=== PATIENT | female | born 1940 | race Caucasian/White ===

== ENCOUNTER 2018-06-18 13:53 | Outpatient (CLI) | payer MEDICARE, OTHER ==
--- NOTE | 2018-06-18 15:24 | Mammography Report ---
Reason: ENCOUNTER FOR SCREENING MAMMOGRAM FOR MALIGNANT NE Procedure Date: 06/18/2018 Accession Number: [id number] / [id number] Procedure: TIKI - Screening Mammo w/Vahe CPT Code: FULL RESULT: EXAM: Screening Mammo w/Vahe DATE: 06/18/2018 2:38 PM CLINICAL HISTORY: Screening encounter. History of benign breast biopsy. TECHNIQUE: Bilateral CC and MLO views were obtained. COMPARISON: 09/02/2012 through 07/18/2011. FINDINGS: The breasts demonstrate diffuse fatty replacement bilaterally. Typically benign large rodlike calcifications are identified. There also typically benign vascular calcifications. No suspicious masses, clustered microcalcifications, or regions of architectural distortion are identified. IMPRESSION: Benign findings RECOMMENDATION: Routine annual screening unless otherwise clinically indicated. BIRADS CATEGORY 2: Benign findings STANDARD QUALIFYING STATEMENTS: 1. This examination was not reviewed with the aid of Computer-Aided Detection (CAD). 2. A negative or benign imaging report should not delay biopsy if clinically suspicious findings are present. Consider surgical consultation if warrented. More than 5% of cancers are not identified by imaging. 3. Dense breasts may obscure an underlying neoplasm. 4. This examination was reviewed with the aid of 3D breast imaging (tomosynthesis).
== END 2018-06-18 13:54 | disposition home or self-care (01) ==
LOC: DI 13:53
PROVIDERS: ATTEND Family Medicine
DX: Z12.31 Encounter for screening mammogram for malignant neoplasm of breast (principal)
CPT/HCPCS: 77063; 77067

== ENCOUNTER 2018-06-18 13:54 | Outpatient (CLI) | payer MEDICARE, OTHER ==
--- NOTE | 2018-06-20 09:35 | DEXA Report ---
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 Regions measured are the AP Spine, femoral neck, and if needed forearm. COMPARISON: None. In accordance with the International Society for Clinical Densitometry (ISCD) guidelines, data from previous exams may be reanalyzed using current recommendations and techniques. This is done to allow a more accurate basis for comparison with the current study. FINDINGS: The data for the lumbar spine is as follows: BMD (g/cm/cm) T-SCORE Z-SCORE REGION L1 0.759 -3.1 -1.7 L2 0.777 -3.5 -2.1 L3 0.755 -3.7 -2.3 L4 0.906 -2.5 -1.0 TOTAL 0.816 -3.0 -1.6 NOTE: All evaluable vertebrae are used for classification The data for the hip is as follows: BMD (g/cm/cm) T-SCORE Z-SCORE REGION Neck 0.782 -1.8 0.0 TOTAL 0.717 -2.3 -0.7 NOTE: The femoral neck or total proximal femur, whichever is lowest, is used for classification. IMPRESSION: THE WHO CLASSIFICATION BASED ON THE INTERNATIONAL REFERENCE STANDARD IS OSTEOPOROSIS. THE FRACTURE RISK IS HIGH. RECOMMENDATION: Patients with diagnosis of osteoporosis or osteopenia should have regular bone mineral density assessment. For those eligible for Medicare, routine testing is allowed once every 2 years. Testing frequency can be increased for patients who have rapidly progressing disease or for those who are receiving medical therapy to restore bone mass. COMMENT: World Health Organization (WHO) definitions for osteoporosis and osteopenia: NORMAL BMD: T-score at -1.0 or higher, fracture risk is low OSTEOPENIA BMD: T-score between -1.0 and -2.5, fracture risk is increased. OSTEOPOROSIS BMD: T-score at -2.5 or lower, fracture risk is high. National Osteoporosis Foundation recommends: 1. Obtain adequate dietary calcium (at least 1200 mg per day) and vitamin D (400-800 international units per day). 2. Participate, as appropriate, in regular weightbearing and muscle-strengthening exercise. 3. Avoid tobacco use and reduce alcohol and caffeine intake. 4. For more detailed information see the website at www.NOF.org.
== END 2018-06-18 13:55 | disposition home or self-care (01) ==
LOC: DI 13:54
PROVIDERS: ATTEND Family Medicine
DX: M81.0 Age-related osteoporosis without current pathological fracture (principal)
CPT/HCPCS: 77080

== ENCOUNTER 2020-07-13 09:08 | Outpatient (CLI) | payer MEDICARE, OTHER ==
[2020-07-13] MEDS ORDERED: GADOBUTROL 10 MMOL/10 ML VIAL ONE (09:21)
[2020-07-13 11:28] LABS: CREATININE 0.4 mg/dL (0.4-1.0)
[2020-07-13] MEDS ORDERED: IOPAMIDOL-300 100 ML VIAL ONE (11:36)
[2020-07-13] MEDS ORDERED: IOPAMIDOL-300 100 ML VIAL IVP ONE (11:53)
--- NOTE | 2020-07-13 12:56 | CT Report ---
PROCEDURE: ANGIO NECK W INDICATIONS: DIZZINESS FOLLOWING NECK EXTENSION CONTRAST: IV CONTRAST: Isovue 300 ml: 80 PO CONTRAST: *NO PO CONTRAST TECHNIQUE: After the administration of intravenous contrast, 1.5 mm axial sections acquired from the aortic arch to the Holt of [place]. Coronal 3-D maximum intensity projection (MIP) and/or volume rendering ref ormats were then performed. For radiation dose reduction, the following was used: automated exposur e control, adjustment of mA and/or kV according to patient size. COMPARISON: Correlation is made with the accompanying brain MR angiogram, 07/13/2020. FINDINGS: Image quality: Excellent. Carotid system: The great vessels demonstrate a conventional anatomy as they arise from the aortic a rch. The origins of the common carotid arteries appear patent. The common carotid arteries demonstr ate normal calibers and courses. The bifurcation regions demonstrate atherosclerotic calcification a nd irregularity, without a hemodynamically significant stenosis is seen. The more distal internal car otid arteries demonstrate normal caliber. Tortuosity is seen of the distal internal carotid arteries , left worse than right. A carotid dissection is not seen. Posterior circulation: The origins of the vertebral arteries appear patent. The more superior porti ons of the vertebral arteries demonstrate normal course and caliber. They join to form a normal appe aring basilar artery. No findings of dissection can be seen. Soft tissues: Visualized neck soft tissues demonstrate no suspicious abnormalities. The thyroid gla nd is normal in size. Bones: No suspicious bony lesions. Visualized cervical spine appears normally aligned. Chronic ap pearing thickening can be seen involving the outer table of the right posterior calvarium, as on seri es 5 image 228. Degenerative changes are seen throughout, which are most prominent involving the lowe r cervical spine. IMPRESSION: No hemodynamically significant stenosis is detected. No dissection is identified. The estimate of stenosis included in the report of the imaging study was calculated using the NASCET method Reviewed by: Oskar Zepeda MD on 07/13/2020 11:55 AM RACHAEL Approved by: Oskar Zepeda MD on 07/13/2020 11:55 AM RACHAEL Station ID: [id number]
--- NOTE | 2020-07-14 15:06 | MRI Report ---
PROCEDURE: Angio Brain W/O (MRA) INDICATIONS: DIZZINESS FOLLOWING NECK EXTENSION TECHNIQUE: Noncontrast axial 3-D grri-dq-powoba MR angiogram, with 3-dimensional maximum intensity projection (M IP) reformats of the internal carotid arteries and posterior circulation then performed. COMPARISON: None. FINDINGS: Image quality: Study is limited by motion artifact and tortuosity of the vasculature Anterior circulation: Intracranial internal carotid arteries demonstrate normal size and intralumina l flow signal. The flow within the paired anterior cerebral arteries is normal and symmetric. There is flow related artifact in a tortuous right M1 MCA. The remainder of the middle cerebral arteries is normal and symmetric. The anterior communicating artery is seen. No stenoses, occlusions, or aneur ysms. Posterior circulation: Visualized portions of the vertebral arteries demonstrate normal caliber, and join to form a normal appearing basilar artery. The flow within the posterior cerebral arteries is normal and symmetric. No stenoses, occlusions, or aneurysms. IMPRESSION: The study is limited by motion and flow related artifact tortuosity. No evidence of large branch occl usion or aneurysm. The patient became claustrophobic, and the previously scheduled MR angiogram of the neck was canceled after no diagnostic images were able to be obtained. Follow-up CT angiogram of the head and neck has been ordered. Reviewed by: Kavon Salamanca MD on 07/13/2020 1:04 PM PDT Approved by: Kavon Salamanca MD on 07/13/2020 1:04 PM PDT Station ID: [id number]
== END 2020-07-13 09:09 | disposition home or self-care (01) ==
LOC: DI 09:08
PROVIDERS: ATTEND Nurse Practitioner Family
DX: L03.116 Cellulitis of left lower limb (principal); R42 Dizziness and giddiness
CPT/HCPCS: 70498; 70544; 82565; Q9967

== ENCOUNTER 2021-09-20 13:43 | Outpatient (CLI) | payer MEDICARE, OTHER ==
--- NOTE | 2021-09-20 16:09 | Ultrasound Report ---
PROCEDURE: Duplex Ext Veins Bilateral INDICATIONS: Bilateral calf pain. TECHNIQUE: Real-time imaging, as well as color and pulse Doppler interrogation, were performed of the deep veins of both legs from the inguinal ligament to the popliteal fossa. COMPARISON: None FINDINGS: The deep veins of the right and left lower extremities are normally compressible, and free of intraluminal thrombus. Color and pulse Doppler demonstrate normal phasic intravascular flow in t he deep veins of the right and left lower extremities. There is normal augmentation response to dist al compression maneuver in the deep veins of the right and left lower extremity. IMPRESSION: No evidence of deep vein thrombosis involving the right or left lower extremities. Reviewed by: Opal Lane MD, PhD on 09/20/2021 4:08 PM PDT Approved by: Opal Lane MD, PhD on 09/20/2021 4:08 PM PDT Station ID: [id number]
== END 2021-09-20 13:44 | disposition home or self-care (01) ==
LOC: DI 13:43
PROVIDERS: ATTEND Nurse Practitioner Family
DX: M79.605 Pain in left leg (principal); M79.604 Pain in right leg
CPT/HCPCS: 93970

== ENCOUNTER 2021-10-11 12:48 | Outpatient (CLI) | payer MEDICARE, OTHER ==
--- NOTE | 2021-10-11 16:02 | XRAY Report ---
PROCEDURE: Lumbar Spine 2 View INDICATIONS: LUMBAR RADICULOPATHY TECHNIQUE: 2 views of the lumbar spine were acquired. COMPARISON: None. FINDINGS: Bones: 5 duc-txq-ekcsrgk vertebrae are present. There is 3 mm retrolisthesis of L5 on S1. There is severe disc and foraminal narrowing at S1. There is overall mild to moderate scattered areas of degen erative disc space narrowing throughout the spine. Moderate bilateral foraminal narrowing is most not able at L2-3. No vertebral body compression fractures. No suspicious bony lesions. Soft tissues: Overlying bowel gas pattern is normal. No suspicious soft tissue calcifications. IMPRESSION: Degenerative changes most notable at L5-S1. Reviewed by: Jessica Crow MD on 10/11/2021 4:01 PM PDT Approved by: Jessica Crow MD on 10/11/2021 4:01 PM PDT Station ID: [id number]
== END 2021-10-11 12:49 | disposition home or self-care (01) ==
LOC: DI 12:48
PROVIDERS: ATTEND Nurse Practitioner Family
DX: M47.26 Other spondylosis with radiculopathy, lumbar region (principal)

== ENCOUNTER 2021-12-23 13:44 | Emergency (ER) | payer MEDICARE ==
[2021-12-23 13:59] VITALS: BP 147/58
--- NOTE | 2021-12-23 15:05 | XRAY Report ---
PROCEDURE: Hip w/Pelvis 2-3V RT INDICATIONS: fall/pain TECHNIQUE: AP pelvis with lateral view(s) of the right hip(s). COMPARISON: None. FINDINGS: Bones: No fractures or dislocations. Pelvic ring appears intact. No suspicious bony lesions. Oste openia. Moderate bilateral hip joint space narrowing with marginal osteophytes. Degenerative changes noted in the lower lumbar spine. Soft tissues: The visualized bowel gas pattern is normal. No suspicious soft tissue calcifications. IMPRESSION: Osteopenia and osteoarthritis without evidence of fracture Reviewed by: Kavon Salamanca MD on 12/23/2021 2:04 PM AKRACHAEL Approved by: Kavon Salamanca MD on 12/23/2021 2:04 PM AKRACHAEL Station ID: [id number]
--- NOTE | 2021-12-23 16:20 | ED Physician Documentation ---
History of Present Illness - Stated complaint Stated Complaint: FALL - Chief complaint Chief Complaint: Trauma Ext - Additonal information Additional information: 81-year-old female presents emergency department for evaluation of acute right hip pain. She reports a history of chronic low back pain as well as neuropathy. She did have a fall in the shower 2 days ago. Did not strike her head or lose consciousness. Is not anticoagulated. Since then she has had pain in the posterior hip made worse with ambulation. She has been using a cane to ambulate though she did use a family member's walker and found that it improved her gait quite a bit. Review of Systems Constitutional: reports: Reviewed and negative Ears: reports: Reviewed and negative Cardiac: reports: Reviewed and negative Respiratory: reports: Reviewed and negative Skin: denies: Rash, Lesions, Abrasion (s) Musculoskeletal: reports: Joint pain Neurologic: denies: Generalized weakness, Focal weakness PD PAST MEDICAL HISTORY - Past Medical History Cardiovascular: High cholesterol Endocrine/Autoimmune: HyPOthyroidism - Past Surgical History Past Surgical History: Yes - Present Medications Home Medications: Ambulatory Orders Medication Instructions Recorded Confirmed Benzonatate [Tessalon] 100 - 200 mg PO TID PRN #30 capsule 08/23/15 Cetirizine HCl/Pseudoephedrine 1 each PO BID PRN #30 tab.er.12h 08/23/15 [Zyrtec-D Tablet] Cholecalciferol (Vitamin D3) 5,000 unit PO DAILY 08/23/15 08/23/15 [Vitamin D3] Levothyroxine [Synthroid] 100 mcg PO QDAC 08/23/15 08/23/15 Omeprazole [PriLOSEC] 20 mg PO DAILY 08/23/15 08/23/15 oxyCODONE [Roxicodone] 5 mg PO TID PRN #10 tablet 12/23/21 - Allergies Allergies/Adverse Reactions: Allergies Allergy/AdvReac Type Severity Reaction Status Date / Time cephalexin Allergy Rash Verified 12/23/21 13:59 Sulfa (Sulfonamide Allergy unknown Verified 12/23/21 13:59 Antibiotics) - Social History Does the pt smoke?: No Smoking Status: Never smoker Does the pt drink ETOH?: No Does the pt have substance abuse?: No - POLST Patient has POLST: No PD ED PE EXPANDED - General General: Alert, No acute distress - Cardiac Cardiac: Regular Rate, Radial strong equal, Pedal strong equal, Cap refill < 2 sec - Respiratory Respiratory: Clear to ausultation eugenio. No: Distress, Labored - Extremities Extremities: Right hip (Pain mostly with palpation of the right posterior hip and gluteal area. No abrasion or swelling. No midline low back pain elicited. Normal active and passive range of motion though tender in the posterior hip. No tenderness elicited with palpation of the proximal femur. No malrotation), Pedal edema bilateral, Pedal Pulses Present Results - Vitals Vitals: Vital Signs - 24 hr 12/23/21 13:56 Temperature 36.4 C L Heart Rate 73 Respiratory 16 Rate Blood Pressure 147/58 H O2 Saturation 94 Oxygen O2 Source Room air - Labs Labs: Laboratory Tests 12/23/21 12/23/21 16:25 16:25 WBC 10.3 RBC 3.13 L Hgb 11.1 L Hct 33.8 L MCV 108.0 H MCH 35.5 H MCHC 32.8 Plt Count 349 MPV 10.2 Neut # (Auto) 7.9 H Lymph # (Auto) 1.0 L [place] # (Auto) 1.1 H Eos # (Auto) 0.1 Baso # (Auto) 0.1 Absolute Nucleated RBC 0.00 Nucleated RBC % 0.0 Manual Slide Review Indicated Platelet Estimate NORMAL (130-450,000) Platelet Morphology NORMAL APPEARANCE RBC Morph Micro Appear 2+ MACROCYTOSIS Sodium 140 Potassium 3.2 L Chloride 104 Carbon Dioxide 27 Anion Gap 9.0 BUN 18 Creatinine 0.5 Estimated GFR (MDRD) 118 Glucose 120 H Calcium 9.0 - Rads (name of study) CT hip/pelvis Radiology: Final report received (No evidence of pelvis or hip fracture. Bilateral inguinal hernias. No bowel obstruction. Sigmoid diverticulosis without evidence of diverticulitis.) PD MEDICAL DECISION MAKING - ED course Complexity details: reviewed results, re-evaluated patient, considered chris del valle, d/w patient ED course: 81-year-old female presents emergency department for evaluation of right posterior hip pain. She had a ground-level fall in the shower 2 days ago. She has been ambulatory with a cane. Most of her pain was elicited within the gluteal muscle body. No tenderness was elicited with palpation of the proximal femur Or with internal or external rotation. Initial x-ray imaging was negative but given advanced age we did proceed with a CT of the hip and pelvis that did not show any findings of acute fracture. Patient was able to ambulate well in the emergency department using a walker. She did receive a dose of oxycodone which she reported was helpful for her pain. [address] we discussed that the CT imaging is not 100% definitive to rule out an occult fracture and that MRI imaging is typically the image of choice in unclear cases but the patient does not feel that this is necessary today as her pain is improved and she is ambulating well with a walker. She is discharged home to follow-up with a primary care provider. Limited prescription for oxycodone is sent to the [facility] in [place]. I am prescribing a short course of short-acting opioid pain medication for this patient. I have reviewed the patients PCP and no concerning findings were noted. I have discussed that the opioids are for short term therapy only, and will not be refilled from the ED. Departure - Departure Disposition: 01 Home, Self Care Clinical Impression: Fall from ground level Contusion of right hip Qualifiers: Encounter type: initial encounter Qualified Code(s): S70.01XA - Contusion of right hip, initial encounter Condition: Stable Record reviewed to determine appropriate education?: Yes Instructions: ED Contusion Lower Extr Ch Prescriptions: oxyCODONE [Roxicodone] 5 mg PO TID PRN #10 tablet PRN Reason: Pain Comments: Nancy was seen today in the emergency department after she fell 2 days ago at home and has had pain behind her right hip. The x-ray did not show a broken bone. However we did also do a CT of the hip and pelvis that did not show any findings of a fracture. I do suspect highly that she has a soft tissue or muscle contusion that I think will improve over the next 7 to 10 days. In general I would like her to use 600 mg of ibuprofen with food 2-3 times a day. For more severe pain a very limited amount of oxycodone has been sent to the pharmacy. Nancy should always ambulate with a walker. This is the safest way for her to get around and to ensure she does not have any more falls. Oxycodone can cause significant constipation. She should take MiraLAX each day while on this medication to prevent constipation. Discuss this ED visit with your primary care provider. If at any point you find that your symptoms are not improving, you have worsening pain any falls or fevers then please return immediately to the ER for second evaluation. I am prescribing a short course of narcotic pain medication for you. These are potentially dangerous and addictive medications that should be used carefully. These medications may constipate you. Take an kdui-bnr-dhohppv stool softener (docusate) twice daily with plenty of water while taking these medications. If you go 24 hours without a bowel movement, take ahtq-otl-tofodor miralax, per package instructions. Do not drink or drive while taking these medications. If you received narcotic or sedating medications while in the emergency department, do not drive for 24 hours. Store this medication in a safe, secure place and out of reach of children. It is a violation of federal law to give or sell this medication to another person or to use in a manner other than prescribed. The ED will not refill narcotic prescriptions, including prescriptions lost or stolen. To dispose of unwanted medications: 1. [facility] at [address] in [place] has a medication drop box. They accept prescription medications (in pill form) Sunday through Sunday 9:00 a.m. to 5:00 p.m. 2. The [facility] [employer] accepts prescription medications (in pill form only) for disposal year round. Call for more information. 3. Contact the [facility] for the next [facility] sponsored prescription drug collection event. , [phone], or [phone]; Note that many narcotic pain relievers also contain Tylenol/acetaminophen. Please ensure that your total dose of acetaminophen from all sources does not exceed 3 g (3000 mg) per day.
[2021-12-23 16:31] LABS: BASOPHILS # (AUTO) 0.1 10^3/uL (0.0-0.1); BASOPHILS % (AUTO) 0.6 %; EOSINOPHILS # (AUTO) 0.1 10^3/uL (0.0-0.7); EOSINOPHILS % (AUTO) 1.2 %; HCT - HEMATOCRIT 33.8 % (37.0-47.0); HGB - HEMOGLOBIN 11.1 g/dL (12.0-16.0); LYMPHOCYTES % (AUTO) 9.3 %; MEAN CORPUSCULAR HEMOGLOBIN 35.5 pg (27.0-31.0); MEAN CORPUSCULAR HGB CONC 32.8 g/dL (32.0-36.0); MEAN PLATELET VOLUME 10.2 fL (7.9-10.8); MONOCYTES # (AUTO) 1.1 10^3/uL (0.0-1.0); NEUTROPHILS # (AUTO) 7.9 10^3/uL (1.5-6.6); NEUTROPHILS % (AUTO) 77.3 %; PLT - PLATELET COUNT 349 10^3/uL (130-450); RED BLOOD COUNT 3.13 10^6/uL (4.20-5.40); WHITE BLOOD COUNT 10.3 x10^3/uL (4.8-10.8)
[2021-12-23] MEDS: oxyCODONE 5 MG TABLET PO STA (16:33)
[2021-12-23 16:39] LABS: CREATININE 0.5 mg/dL (0.4-1.0); POTASSIUM 3.2 mmol/L (3.5-5.0)
[2021-12-23] MEDS: POTASSIUM CHLORIDE 20 MEQ TABLET PO STA (17:37)
--- NOTE | 2021-12-23 17:50 | CT Report ---
PROCEDURE: PELVIS WO INDICATIONS: right hip pain; r/p fx TECHNIQUE: Noncontrast 3 mm axial sections acquired through the bony pelvis, with coronal and sagittal reformatt ing. For radiation dose reduction, the following was used: automated exposure control, adjustment of mA and/or kV according to patient size. COMPARISON: None. FINDINGS: Image quality: Excellent. Generalized decreased osseous mineralization present. There is bilateral acetabular moderate joint sp nathan narrowing with marginal osteophytes present. No evidence of proximal femoral or pelvic fracture Bilateral inguinal hernias noted. There is a left inguinal hernia without obstruction. Fluid in the r ight inguinal hernia noted.. Calcified uterine fibroids present. Multiple diverticula arise from the sigmoid colon without evidence of diverticulitis. Degenerative changes noted in the lower lumbar spin e IMPRESSION: No evidence of pelvis or hip fracture. Bilateral inguinal hernias. No bowel obstruction. Sigmoid diverticulosis without evidence of diverticulitis Reviewed by: Kavon Salamanca MD on 12/23/2021 4:49 PM RACHAEL Approved by: Kavon Salamanca MD on 12/23/2021 4:49 PM AKRACHAEL Station ID: [id number]
[2021-12-23 18:00] LABS: SLIDE REVIEW? Indicated
[2021-12-23 18:01] LABS: PLATELET ESTIMATE, MANUAL NORMAL (130-450,000) (NORMAL); PLATELET MORPHOLOGY NORMAL APPEARANCE (NORMAL)
== END 2021-12-23 18:21 | disposition home or self-care (01) ==
LOC: ED 13:44
DX: S70.01XA Contusion of right hip, initial encounter (principal); W19.XXXA Unspecified fall, initial encounter; Y93.F1 Activity, caregiving, bathing
CPT/HCPCS: 36415; 72192; 73502; 80048; 85025; 99283; 99284; A9270

== ENCOUNTER 2021-12-31 19:58 | Outpatient (CLI) | payer MEDICARE | END 2021-12-31 19:59 | disposition critical access hospital (66) | LOC: EMS 19:58 | DX: R55 Syncope and collapse (principal); R41.0 Disorientation, unspecified | CPT/HCPCS: A0425; A0429 ==

== ENCOUNTER 2021-12-31 20:30 | Emergency (ER) | payer MEDICARE ==
[2021-12-31] MEDS ORDERED: SODIUM CHLORIDE 0.9% 1,000 ML IV STA ×2 (21:01→22:16)
--- NOTE | 2021-12-31 21:05 | ED Physician Documentation ---
PD HPI SYNCOPE - Stated complaint Stated Complaint: SYNCOPE - Chief complaint Chief Complaint: Neuro - History obtained from History obtained from: Patient, EMS - History of Present Illness Witnessed: Witnessed Timing - onset: Today Duration: Seconds Preceding symptoms: Light headed, Generalized weakness Associated symptoms: No: Seizure, Incontinant of urine, Headache, Vision changes, Chest pain, Palpitations, Diaphoresis, Dyspnea, Nausea / vomiting, Abdominal pain Contributing factors: Recent med change, Decreased PO intake, Just stood up Injury occurred: None Similar symptoms before: Has not had sx before Recently seen: Emergency Dept - Additional information Additional information: 81-year-old Nancy Salamanca has a history of hypothyroidism and chronic back pain. She is recently been seen in the emergency department after a fall in the shower 10 days ago and she has had reduced mobility secondary to pain in her hip. She has now started to use a walker. She has been evaluated for this and placed on some pain medication. The pain medication helped and she has run out. This evening she was at a birthday constitution party in her home when she began to feel that she needed to go to bed and she got up from her chair and collapsed into her daughter's arms. Patient has reduced mobility and indicates that she is not getting up to go to the bathroom as often as normal and she is not getting up to go get water as normal. She states otherwise she thinks she is eating okay she is taking her medications and she does not otherwise feel ill Review of Systems Constitutional: denies: Fever Eyes: denies: Decreased vision Ears: denies: Ear pain Nose: denies: Rhinorrhea / runny nose, Congestion Throat: denies: Sore throat Cardiac: denies: Chest pain / pressure, Palpitations Respiratory: denies: Dyspnea, Cough GI: denies: Abdominal Pain, Nausea, Vomiting, Constipation, Diarrhea : denies: Dysuria, Frequency Skin: denies: Rash Musculoskeletal: reports: Back pain, Extremity pain, Joint pain, Pain with weight bearing. denies: Neck pain Neurologic: reports: Syncope, Altered mental status (resolved), LOC. denies: Generalized weakness, Focal weakness, Numbness, Seizure, Headache, Head injury PD PAST MEDICAL HISTORY - Past Medical History Cardiovascular: High cholesterol Endocrine/Autoimmune: HyPOthyroidism - Past Surgical History Past Surgical History: Yes - Present Medications Home Medications: Ambulatory Orders Medication Instructions Recorded Confirmed Benzonatate [Tessalon] 100 - 200 mg PO TID PRN #30 capsule 08/23/15 Cetirizine HCl/Pseudoephedrine 1 each PO BID PRN #30 tab.er.12h 08/23/15 [Zyrtec-D Tablet] Cholecalciferol (Vitamin D3) 5,000 unit PO DAILY 08/23/15 08/23/15 [Vitamin D3] Levothyroxine [Synthroid] 100 mcg PO QDAC 08/23/15 08/23/15 Omeprazole [PriLOSEC] 20 mg PO DAILY 08/23/15 08/23/15 oxyCODONE [Roxicodone] 5 mg PO TID PRN #10 tablet 12/23/21 Ciprofloxacin HCl [Cipro] 500 mg PO BID #14 tablet 01/01/22 Meloxicam [Mobic] 7.5 mg PO BID PRN #20 tablet 01/01/22 Oxycodone HCl/Acetaminophen 1 - 2 each PO Q6H PRN #14 tablet 01/01/22 [Percocet 5-325 mg Tablet] - Allergies Allergies/Adverse Reactions: Allergies Allergy/AdvReac Type Severity Reaction Status Date / Time cephalexin Allergy Rash Verified 12/31/21 20:46 Sulfa (Sulfonamide Allergy unknown Verified 12/31/21 20:46 Antibiotics) - Social History Does the pt smoke?: No Smoking Status: Never smoker Does the pt drink ETOH?: No Does the pt have substance abuse?: No - POLST Patient has POLST: No PD ED PE NORMAL - Vitals Vital signs reviewed: Yes (hypertensive mild ) - General General: Alert and oriented X 3, No acute distress, Well developed/nourished - HEENT HEENT: Atraumatic, PERRL, EOMI - Neck Neck: Supple, no meningeal sign, No bony TTP - Cardiac Cardiac: RRR, Other (2/6 holosysolic murmer ) - Respiratory Respiratory: No respiratory distress, Clear bilaterally - Abdomen Abdomen: Normal bowel sounds, Soft, Non tender, Non distended, No organomegaly - Back Back: No CVA TTP, No spinal TTP - Derm Derm: Normal color, Warm and dry, No rash - Extremities Extremities: No deformity, No edema - Neuro Neuro: Alert and oriented X 3, internal salesperson 2-12 intact, No motor deficit, No sensory deficit, Normal speech Eye Opening: To Voice Motor: Obeys Commands Verbal: Oriented GCS Score: 14 - Psych Psych: Normal mood, Normal affect Results - Vitals Vitals: Vital Signs - 24 hr 12/31/21 12/31/21 01/01/22 20:39 22:43 00:38 Temperature 36.2 C L Heart Rate 64 68 72 Respiratory 19 16 16 Rate Blood Pressure 167/68 H 143/97 H 144/93 H O2 Saturation 99 97 98 Oxygen O2 Source Room air - EKG (time done) 2030 Rate: Rate (enter#) (62) Rhythm: NSR, LAE Intervals: RBBB Compare to prior EKG: Old EKG unavailable Computer interpretation: Agree with computer - Labs Labs: Laboratory Tests 12/31/21 12/31/21 12/31/21 21:15 21:15 21:15 WBC 12.9 H RBC 3.37 L Hgb 11.6 L Hct 35.3 L MCV 104.7 H MCH 34.4 H MCHC 32.9 RDW 24.5 H Plt Count 607 H MPV 9.7 Neut # (Auto) 11.0 H Lymph # (Auto) 1.0 L Coos # (Auto) 0.7 Eos # (Auto) 0.1 Baso # (Auto) 0.1 Absolute Nucleated RBC 0.00 Nucleated RBC % 0.0 Manual Slide Review Indicated Platelet Estimate INCREASED (>450,000) Platelet Morphology NORMAL APPEARANCE RBC Morph Micro Appear 3+ ANISOCYTOSIS Sodium 141 Potassium 3.5 Chloride 104 Carbon Dioxide 27 Anion Gap 10.0 BUN 17 Creatinine 0.5 Estimated GFR (MDRD) 118 Glucose 127 H Lactic Acid 0.7 Calcium 9.3 Magnesium 2.3 Total Bilirubin 0.4 AST 17 ALT 16 Alkaline Phosphatase 121 Total Protein 6.7 Albumin 3.6 Globulin 3.1 Albumin/Globulin Ratio 1.2 Lipase 23 Urine Color Urine Clarity Urine pH Ur Specific [place] Urine Protein Urine Glucose (UA) Urine Ketones Urine Occult Blood Urine Nitrite Urine Bilirubin Urine Urobilinogen Ur Leukocyte Esterase Urine RBC Urine WBC Ur Squamous Epith Cells Urine Bacteria Ur Microscopic Review Urine Culture Comments 12/31/21 22:39 WBC RBC Hgb Hct MCV MCH MCHC RDW Plt Count MPV Neut # (Auto) Lymph # (Auto) Coos # (Auto) Eos # (Auto) Baso # (Auto) Absolute Nucleated RBC Nucleated RBC % Manual Slide Review Platelet Estimate Platelet Morphology RBC Morph Micro Appear Sodium Potassium Chloride Carbon Dioxide Anion Gap BUN Creatinine Estimated GFR (MDRD) Glucose Lactic Acid Calcium Magnesium Total Bilirubin AST ALT Alkaline Phosphatase Total Protein Albumin Globulin Albumin/Globulin Ratio Lipase Urine Color YELLOW Urine Clarity CLOUDY Urine pH 6.0 Ur Specific [place] 1.015 Urine Protein NEGATIVE Urine Glucose (UA) NEGATIVE Urine Ketones NEGATIVE Urine Occult Blood NEGATIVE Urine Nitrite POSITIVE H Urine Bilirubin NEGATIVE Urine Urobilinogen 0.2 (NORMAL) Ur Leukocyte Esterase TRACE H Urine RBC 0-5 Urine WBC 6-10 H Ur Squamous Epith Cells NONE SEEN Urine Bacteria Many H Ur Microscopic Review INDICATED Urine Culture Comments INDICATED Procedures - IVC sono (time) 2100 Bedside IVC sono: IVC measures (cm) (0.81), IVC collapsed c insp (cm) (complete), Dehydration (est 2 liter deficit) PD MEDICAL DECISION MAKING - ED course Complexity details: reviewed old records, reviewed results, re-evaluated patient, considered differential, d/w patient ED course: 81-year-old female with reduced mobility secondary to a fall in the shower and a contusion to her hip has had a syncopal episode this evening. On physical examination with the use of bedside ultrasound her inferior vena cava is interrogated and found to have a 8.1 mm vessel collapsing completely consistent with a 2 L volume deficit and she is administered intravenous saline. She does not produce urine after the first liter and is able to give a cloudy specimen during the second liter and she has marked improvement. This patient had been having symptoms of urinary frequency and urgency and had voluntarily decreased her fluid intake to avoid having the painful experience of getting in and out of bed to go to the bathroom. I suspect this is the reason for her significant dehydration and she does have evidence of infection on examination of the urine. She is administered a gram of Rocephin intravenously and we will place her on some antibiotic as an outpatient. She was administered IV toradal with improvement in her pain. She is much more animated on discharge and able to get in and out of bed by herself. Departure - Departure Disposition: 01 Home, Self Care Clinical Impression: Syncope and collapse, Dehydration UTI (urinary tract infection) Qualifiers: Urinary tract infection type: acute cystitis Hematuria presence: without hematuria Qualified Code(s): N30.00 - Acute cystitis without hematuria Condition: Stable Instructions: ED Dehydration, ED UTI Cystitis Female Follow-Up: Eloisa Chua ARNP [Primary Care Provider] - Prescriptions: Ciprofloxacin HCl [Cipro] 500 mg PO BID #14 tablet Meloxicam [Mobic] 7.5 mg PO BID PRN #20 tablet PRN Reason: Pain Oxycodone HCl/Acetaminophen [Percocet 5-325 mg Tablet] 1 - 2 each PO Q6H PRN #14 tablet PRN Reason: pain Comments: Nancy, today it looks like you had a fainting episode relating to significant dehydration. In addition you have a urinary tract infection and I have E scribed some antibiotic to the [facility] in [place]. I have E scribed some medication for pain as well. Try the Mobic as it may be helpful long-term. Be certain to stay hydrated. Discharge Date/Time: 01/01/22 00:45
[2021-12-31 21:27] LABS: BASOPHILS # (AUTO) 0.1 10^3/uL (0.0-0.1); BASOPHILS % (AUTO) 0.5 %; EOSINOPHILS # (AUTO) 0.1 10^3/uL (0.0-0.7); EOSINOPHILS % (AUTO) 0.7 %; HCT - HEMATOCRIT 35.3 % (37.0-47.0); HGB - HEMOGLOBIN 11.6 g/dL (12.0-16.0); LYMPHOCYTES % (AUTO) 7.4 %; MEAN CORPUSCULAR HEMOGLOBIN 34.4 pg (27.0-31.0); MEAN CORPUSCULAR HGB CONC 32.9 g/dL (32.0-36.0); MEAN CORPUSCULAR VOLUME 104.7 fL (81.0-99.0); MEAN PLATELET VOLUME 9.7 fL (7.9-10.8); MONOCYTES # (AUTO) 0.7 10^3/uL (0.0-1.0); MONOCYTES % (AUTO) 5.7 %; NEUTROPHILS % (AUTO) 85.2 %; PLT - PLATELET COUNT 607 10^3/uL (130-450); RED BLOOD COUNT 3.37 10^6/uL (4.20-5.40); RED CELL DISTRIBUTION WIDTH 24.5 % (12.0-15.0); WHITE BLOOD COUNT 12.9 x10^3/uL (4.8-10.8)
[2021-12-31 21:28] LABS: SLIDE REVIEW? Indicated
[2021-12-31 21:36] LABS: ALBUMIN 3.6 g/dL (3.2-5.5); ALBUMIN/GLOBULIN RATIO 1.2 (1.0-2.2); BILIRUBIN,TOTAL 0.4 mg/dL (0.2-1.0); CALCIUM 9.3 mg/dL (8.5-10.3); CREATININE 0.5 mg/dL (0.4-1.0); MAGNESIUM 2.3 mg/dL (1.7-2.8); POTASSIUM 3.5 mmol/L (3.5-5.0); TOTAL PROTEIN 6.7 g/dL (6.7-8.2)
[2021-12-31 21:53] LABS: PLATELET ESTIMATE, MANUAL INCREASED (>450,000) (NORMAL); PLATELET MORPHOLOGY NORMAL APPEARANCE (NORMAL); RBC MORPHOLOGY (MULTIPLE) 3+ ANISOCYTOSIS (NORMAL)
[2021-12-31 22:51] LABS: BILIRUBIN,URINE NEGATIVE (NEGATIVE); GLUCOSE, URINE (UA) NEGATIVE (NEGATIVE); KETONES,URINE (UA) NEGATIVE (NEGATIVE); LEUKOCYTE ESTERASE, URINE TRACE (NEGATIVE); NITRITE,URINE POSITIVE (NEGATIVE); OCCULT BLOOD,URINE NEGATIVE (NEGATIVE); PROTEIN,URINE NEGATIVE (NEGATIVE); UROBILINOGEN,URINE 0.2 (NORMAL) E.U./dL (NORMAL)
[2021-12-31 22:52] LABS: CLARITY,URINE CLOUDY (CLEAR)
[2021-12-31 22:59] LABS: RBC,URINE 0-5 /HPF (0-5)
[2021-12-31 23:00] LABS: BACTERIA,URINE Many /HPF (None Seen); SQUAMOUS EPITHELIAL CELL,UR NONE SEEN (<= Few)
[2021-12-31] MEDS ORDERED: cefTRIAXone 1 GM in SODIUM CHLORIDE 0.9% MINIBAG 100 ML IV STA (23:15)
[2021-12-31] MEDS ORDERED: cefTRIAXone 1 GM VIAL ONE (23:50)
[2022-01-01 00:38] VITALS: BP 144/93
== END 2022-01-01 00:45 | disposition home or self-care (01) ==
LOC: EDUNIT# → ED 20:30
DX: N30.00 Acute cystitis without hematuria (principal); E86.0 Dehydration; R55 Syncope and collapse; G89.29 Other chronic pain; E03.9 Hypothyroidism, unspecified; M54.9 Dorsalgia, unspecified; M25.559 Pain in unspecified hip
CPT/HCPCS: 36415; 80053; 81001; 81003; 83605; 83690; 83735; 85025; 87086; 87181; 93005; 96361; 96365; 99284

== ENCOUNTER 2023-02-28 17:47 | Emergency (ER) | payer MEDICARE ==
[2023-02-28 18:09] VITALS: BP 144/67; O2SAT 96
--- NOTE | 2023-02-28 18:52 | XRAY Report ---
PROCEDURE: Chest 2 View X-Ray INDICATIONS: Cough TECHNIQUE: 2 views of the chest were acquired. COMPARISON: Radiograph 08/23/2015. FINDINGS: Surgical changes and devices: None. Lungs and pleura: Small airspace opacity in the lingula. Mild eventration of the right hemidiaphragm . Mediastinum: Mediastinal contours appear normal. Heart size is normal. Bones and chest wall: No suspicious bony lesions. Overlying soft tissues appear unremarkable. Mid thoracic compression deformities, new since 2016. IMPRESSION: Small airspace opacity in the lingula, suggestive of mild infection. Recommend repeat radiograph in o ne to 2 months to ensure resolution. Mid thoracic compression deformities, new since 2016 but likely remote. Reviewed by: Edwin Em on 02/28/2023 5:[address] [facility] Approved by: Edwin Em on 02/28/2023 5:[address] [facility] Station ID: [id number]
[2023-02-28 19:00] LABS: B. PARAPERTUSSIS- RESP PCR PAN NOT DETECTED; B. PERTUSSIS- RESP PCR PANEL NOT DETECTED; C. PNEUMONIAE- RESP PCR PANEL NOT DETECTED; CORONAVIRUS 229E-RESP PCR NOT DETECTED; CORONAVIRUS HKU1-RESP PCR NOT DETECTED; CORONAVIRUS NL63-RESP PCR NOT DETECTED; CORONAVIRUS OC43-RESP PCR NOT DETECTED; HUMAN METAPNEUMOVIRUS NOT DETECTED; INFLUENZA A- RESP PCR PANEL NOT DETECTED; INFLUENZA B - RESP PCR PANEL NOT DETECTED; M. PNEUMONIAE- RESP PCR PANEL NOT DETECTED; PARAINFLUENZA VIRUS 1 NOT DETECTED; PARAINFLUENZA VIRUS 2 NOT DETECTED; PARAINFLUENZA VIRUS 3 NOT DETECTED; PARAINFLUENZA VIRUS 4 NOT DETECTED; RHINOVIRUS/ENTEROVIRUS NOT DETECTED; RSV- RESP PCR PANEL NOT DETECTED; SARS-CoV-2 -RESP PCR PANEL NOT DETECTED
[2023-02-28] MEDS ORDERED: ALBUTEROL 1 PUFF INH STA (19:45)
[2023-02-28] MEDS ORDERED: AMOX/CLAV 875 MG/125 MG TABLET PO STA (19:51)
[2023-02-28] MEDS ORDERED: AZITHROMYCIN 250 MG TABLET PO STA (19:51)
--- NOTE | 2023-02-28 19:54 | ED Physician Documentation ---
History of Present Illness - Stated complaint Stated Complaint: SOA/COUGH - Chief complaint Chief Complaint: Resp - History obtained from History obtained from: Patient - History of Present Illness Pain level max: 0 Pain level now: 0 - Additonal information Additional information: Patient is an 82-year-old female who presents to the emergency department with a cough for the past week. She had chills tonight and subjective fever. Had a coughing fit at home and had a hard time catching her breath. She states she coughed up a large amount of mucus. She feels normal now. Has not used inhalers in the past. Does not smoke. No history of COPD or emphysema. Review of Systems Constitutional: denies: Fever, Chills Respiratory: reports: Cough GI: denies: Vomiting, Diarrhea Skin: denies: Rash Musculoskeletal: denies: Neck pain, Back pain Neurologic: denies: Headache PD PAST MEDICAL HISTORY - Past Medical History Cardiovascular: High cholesterol Endocrine/Autoimmune: HyPOthyroidism - Past Surgical History Past Surgical History: Yes - Present Medications Home Medications: Ambulatory Orders Medication Instructions Recorded Confirmed Benzonatate [Tessalon] 100 - 200 mg PO TID PRN #30 capsule 08/23/15 Cetirizine HCl/Pseudoephedrine 1 each PO BID PRN #30 tab.er.12h 08/23/15 [Zyrtec-D Tablet] Cholecalciferol (Vitamin D3) 5,000 unit PO DAILY 08/23/15 08/23/15 [Vitamin D3] Levothyroxine [Synthroid] 100 mcg PO QDAC 08/23/15 08/23/15 Omeprazole [PriLOSEC] 20 mg PO DAILY 08/23/15 08/23/15 oxyCODONE [Roxicodone] 5 mg PO TID PRN #10 tablet 12/23/21 Ciprofloxacin HCl [Cipro] 500 mg PO BID #14 tablet 01/01/22 Meloxicam [Mobic] 7.5 mg PO BID PRN #20 tablet 01/01/22 Oxycodone HCl/Acetaminophen 1 - 2 each PO Q6H PRN #14 tablet 01/01/22 [Percocet 5-325 mg Tablet] Albuterol Sulf [Ventolin Hfa 1 - 2 puffs INH Q4HR PRN #1 each 02/28/23 Inhaler] Amox/Clav 875/125 [Augmentin] 1 tab PO Q12H #19 tablet 02/28/23 Azithromycin [Zithromax] 250 mg PO DAILY #4 tablet 02/28/23 - Allergies Allergies/Adverse Reactions: Allergies Allergy/AdvReac Type Severity Reaction Status Date / Time cephalexin Allergy Rash Verified 12/31/21 20:46 Sulfa (Sulfonamide Allergy unknown Verified 12/31/21 20:46 Antibiotics) - Social History Does the pt smoke?: No Smoking Status: Never smoker Does the pt drink ETOH?: No Does the pt have substance abuse?: No - POLST Patient has POLST: No PD ED PE NORMAL - Vitals Vital signs reviewed: Yes - General General: Alert and oriented X 3, No acute distress - HEENT HEENT: PERRL, Ears normal, Moist mucous membranes, Pharynx benign - Neck Neck: Supple, no meningeal sign - Cardiac Cardiac: RRR - Respiratory Respiratory: No respiratory distress, Other (Mildly diminished breath sounds bilaterally. No wheezing. No stridor.) - Abdomen Abdomen: Soft, Non tender, Non distended - Derm Derm: Warm and dry - Neuro Neuro: Alert and oriented X 3 - Psych Psych: Normal mood, Normal affect Results - Vitals Vitals: Vital Signs - 24 hr 02/28/23 02/28/23 18:02 20:05 Temperature 36.8 C Heart Rate 69 72 Respiratory 18 18 Rate Blood Pressure 144/67 H O2 Saturation 96 Oxygen O2 Source Room air - Labs Labs: Laboratory Tests 02/28/23 18:08 Nasal Adenovirus (PCR) NOT DETECTED Nasal B. parapertussis DNA (PCR) NOT DETECTED Nasal Coronavir 229E PCR NOT DETECTED Nasal Coronavir HKU1 PCR NOT DETECTED Nasal Coronavir NL63 PCR NOT DETECTED Nasal Coronavir OC43 PCR NOT DETECTED Nasal Enterovir/Rhinovir PCR NOT DETECTED Nasal Influenza B PCR NOT DETECTED Nasal Influenza A PCR NOT DETECTED Nasal Parainfluen 1 PCR NOT DETECTED Nasal Parainfluen 2 PCR NOT DETECTED Nasal Parainfluen 3 PCR NOT DETECTED Nasal Parainfluen 4 PCR NOT DETECTED Nasal RSV (PCR) NOT DETECTED Nasal B.pertussis DNA PCR NOT DETECTED Nasal C.pneumoniae (PCR) NOT DETECTED Kenji Human Metapneumo PCR NOT DETECTED Nasal M.pneumoniae (PCR) NOT DETECTED Nasal SARS-CoV-2 (PCR) NOT DETECTED - Rads (name of study) cxr Relevant Findings:: Final report received, See rad report PD Medical Decision Making - ED course Complexity details: reviewed results, re-evaluated patient, considered differential, d/w patient, d/w family ED course: Patient is very well-appearing, nontoxic. Afebrile. No hypoxia. No respiratory distress. Did have mildly diminished breath sounds and felt better after albuterol, therefore she will be placed on albuterol for home. Appears to have a possible early pneumonia on chest x-ray, we will place on antibiotics for this. Will place her on cough medication as well. Patient counseled regarding signs and symptoms for which I believe and urgent re-evaluation would be necessary. Patient with good understanding of and agreement to plan and is comfortable going home at this time This document was made in part using voice recognition software. While efforts are made to proofread this document, sound alike and grammatical errors may occur. Departure - Departure Disposition: Home, Self Care Clinical Impression: Pneumonia Qualifiers: Pneumonia type: due to unspecified organism Laterality: right Lung location: unspecified part of lung Qualified Code(s): J18.9 - Pneumonia, unspecified organism Condition: Good Instructions: ED Pneumonia Adult Follow-Up: ELIZABETH CARCAMO ARNP [Primary Care Provider] - Prescriptions: Albuterol Sulf [Ventolin Hfa Inhaler] 1 - 2 puffs INH Q4HR PRN #1 each PRN Reason: Shortness Of Air/Wheezing Amox/Clav 875/125 [Augmentin] 1 tab PO Q12H #19 tablet Azithromycin [Zithromax] 250 mg PO DAILY #4 tablet Comments: Your prescriptions were sent to [facility] in [place]. Please take all antibiotics until gone. Return if you worsen. I did prescribe you an inhaler, this may help with any difficulty breathing or coughing. You received your first dose of antibiotics tonight. There is an area on your right lung that is suspicious for a possible early pneumonia. It is recommended they have a repeat chest x-ray in 1 to 2 months to ensure resolution. This can be ordered by your doctor. Forms: PCP List Discharge Date/Time: 02/28/23 20:28
== END 2023-02-28 20:28 | disposition home or self-care (01) ==
LOC: ED 17:47
DX: J18.9 Pneumonia, unspecified organism (principal)
CPT/HCPCS: 71046; 87633; 94640; 99283; 99284; A9270